=== PATIENT | female | born 1975 | race Caucasian/White ===

== ENCOUNTER 2017-05-25 20:33 | Emergency (ER) | payer SELFPAY ==
[~2017-05-25] VITALS: Ht 165.1 cm; Wt 71.7 kg
[2017-05-25 21:19] LABS: HEMATOCRIT 28.8 % (36.0-46.0); HEMOGLOBIN 8.9 G/DL (11.9-15.5); MCH 24.1 PG (29.0-34.0); MCHC 30.9 G/DL (30.0-36.0); MCV 77.8 FL (83-99); PLATELET COUNT 296 K/uL (156-360); RBC DIS.WIDTH-CV 15.4 % (11.8-14.6); RBC DIS.WIDTH-SD 43.6 % (39-53); WHITE BLOOD COUNT 8.6 K/uL (4.1-10.2)
[2017-05-25 21:30] LABS: CHLORIDE 109 mEq/L (99-109); POTASSIUM 3.7 mEq/L (3.7-5.4); SODIUM 139 mEq/L (136-147)
[2017-05-25 21:31] LABS: GLUCOSE 93 mg/dL (70-99)
[2017-05-25 21:35] LABS: CREATININE 0.7 mg/dL (0.6-1.3)
[2017-05-25 21:36] LABS: UREA NITROGEN (BUN) 12 mg/dL (9-23)
[2017-05-25 21:43] LABS: GFR ESTIMATE (CALCULATED) > 59 mL/min/
[2017-05-25 21:44] LABS: TROP-I INTERPRETATION NEGATIVE; TROPONIN-I < 0.01 ng/mL (0.0-0.30)
[2017-05-25 22:47] LABS: MAGNESIUM 1.8 mg/dL (1.3-2.7)
[2017-05-25 22:52] LABS: PHOSPHORUS 3.6 mg/dL (2.5-4.9)
[2017-05-25 22:54] LABS: CREATINE KINASE 85 IU/L (1-294)
[2017-05-25 22:55] LABS: D-DIMER ELISA < 150.00 ng/mLDDU (<230)
[2017-05-25 23:48] LABS: TROP-I INTERPRETATION NEGATIVE; TROPONIN-I < 0.01 ng/mL (0.0-0.30)
[2017-05-25 23:57] VITALS: BP 102/65
== END 2017-05-25 23:58 | disposition home or self-care (01) ==
LOC: EME 20:33
PROVIDERS: Emergency Medicine
DX: D64.9 Anemia, unspecified (principal); R20.2 Paresthesia of skin; R07.89 Other chest pain; M79.602 Pain in left arm; R42 Dizziness and giddiness; R51 Headache; N39.0 Urinary tract infection, site not specified; Z98.84 Bariatric surgery status; F17.200 Nicotine dependence, unspecified, uncomplicated
CPT/HCPCS: 71046; 80048; 82550; 83735; 84100; 84484; 85027; 85379; 93005; 99281; 99284

== ENCOUNTER 2017-10-10 23:46 | Emergency (ER) | payer OTHER ==
[~2017-10-10] VITALS: Ht 162.6 cm; Wt 73.9 kg
[~2017-10-10 23:46] MED LIST: BIOTIN1 MG PO; CALCIUM500 M4 PO; CINNAMON500 MG PO; HAIR, SKIN & N1 EAC1 PO; MULTIVITAMIN1 EAC2 PO; SPIRONOLACTONE25 MG PO; VITAMIN B COMP1 EACH PO; XANAX0.5 MG PO
[2017-10-10 23:57] VITALS: BP 129/78
[2017-10-11 00:19] LABS: HEMOGLOBIN 12.1 G/DL (11.9-15.5); MCH 32.3 PG (29.0-34.0); MCHC 34.6 G/DL (30.0-36.0); MCV 93.3 FL (83-99); PLATELET COUNT 230 K/uL (156-360); RBC DIS.WIDTH-CV 13.2 % (11.8-14.6); RBC DIS.WIDTH-SD 45.1 % (39-53); RED BLOOD COUNT 3.75 M/uL (3.80-5.20); WHITE BLOOD COUNT 9.1 K/uL (4.1-10.2)
[2017-10-11 00:27] LABS: CHLORIDE 108 mEq/L (99-109); POTASSIUM 3.5 mEq/L (3.7-5.4); SODIUM 141 mEq/L (136-147)
[2017-10-11 00:29] LABS: GLUCOSE 110 mg/dL (70-99)
[2017-10-11 00:33] LABS: CREATININE 0.7 mg/dL (0.6-1.3); GFR ESTIMATE (CALCULATED) > 59 mL/min/
[2017-10-11 00:34] LABS: UREA NITROGEN (BUN) 13 mg/dL (9-23)
[2017-10-11 00:41] LABS: QUANTITATIVE HCG < 4.0 MIU/ML
== END 2017-10-11 02:00 | disposition left against medical advice (07) ==
LOC: EME 23:46
DX: R42 Dizziness and giddiness (principal); H53.8 Other visual disturbances; Z53.21 Procedure and treatment not carried out due to patient leaving prior to being seen by health care provider
CPT/HCPCS: 80048; 84702; 85027